=== PATIENT | female | born 1960 | race African-American/Black ===

== ENCOUNTER 2020-03-16 14:05 | Outpatient (CLI) | payer OTHER, SELFPAY ==
--- NOTE | ~2020-03-16 | CT_ITS ---
EXAMINATION: CT lung screening DATE: 03/16/2020 14:27 INDICATION: Lung cancer screening your tobacco use. TECHNIQUE: Computed tomography (CT) of the chest was performed without intravenous contrast. The dose -length product was 329.13 mGy-cm. Automated exposure control and iterative reconstruction technique were employed. COMPARISON: None FINDINGS: No significant pleural or pericardial effusion. There is atherosclerosis of the aorta and c oronary arteries. 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 There is left atrial enlargement. There is a 2 mm right upper lobe nodule, image 41. There is a 3.7 mm perifi ssural nodule, image 46. There is a 4 mm left lower lobe nodule, image 60. No focal airspace consolid ation. There is mild predominantly paraseptal emphysema. No endobronchial lesions. No thoracic spondy losis. No acute osseous abnormality. No thoracic lymphadenopathy. There are small hypodensities in th e liver, not well characterize, although most likely benign. IMPRESSION: 1. Lung-RADS category 2: Benign appearance or behavior. Continue annual screening with noncontrast lo w-dose chest CT in 12 months. Reviewed, dictated and finalized at location A. IMPRESSION: 1. Lung-RADS category 2: Benign appearance or behavior. Continue annual screeni ng with noncontrast low-dose chest CT in 12 months.
== END 2020-03-16 14:06 | disposition home or self-care (01) ==
PROVIDERS: Visit Provider Internal Medicine Critical Care Medicine
DX: Z12.2 Encounter for screening for malignant neoplasm of respiratory organs (principal); Z87.891 Personal history of nicotine dependence
CPT/HCPCS: G0297

== ENCOUNTER 2021-06-29 09:30 | Outpatient (RCR) | payer OTHER, SELFPAY ==
[2021-06-08 11:48] VITALS: PULSE 74
--- NOTE | 2021-06-15 13:51 | PCCPR ---
Absent/delayed start Aminta called today states her son is hosptialized and hopes to resume on MondayJun 22.
== END 2021-08-27 11:48 | disposition home or self-care (01) ==
LOC: ANHCPREHAB 09:30
PROVIDERS: PCP Internal Medicine Infectious Disease; Visit Provider Internal Medicine Pulmonary Disease
DX: J44.9 Chronic obstructive pulmonary disease, unspecified (principal)
CPT/HCPCS: 94625